=== PATIENT | male | born 1965 | race Caucasian/White ===

== ENCOUNTER 2017-02-17 19:45 | Emergency (ER) | payer MEDICAID ==
[2017-02-17] MEDS ORDERED: LORazepam 2 MG/ML MDV ONE (19:47)
[2017-02-17] MEDS ORDERED: LORazepam 2 MG/ML MDV IM ONE (19:57)
[2017-02-17] MEDS ORDERED: Sodium Chloride 0.9% 1,000 ML IV SCH (20:00)
[2017-02-17] MEDS ORDERED: Sodium Chloride 0.9% 10 ML Syringe FLUSH PRN (20:00)
[2017-02-17] MEDS ORDERED: Aspirin 81 MG Tab.Chew PO ONE (20:04)
[2017-02-17] MEDS ORDERED: Ketorolac 30 MG/ML SDV IVPUSH ONE (20:44)
--- NOTE | 2017-02-17 20:47 | EDM.PDOC ---
ED HPI GENERAL MEDICAL PROBLEM - General Chief Complaint: Chest Pain Stated Complaint: [facility] Time Seen by Provider: 02/17/17 19:45 Source of Information: Reports: Patient, EMS, EMS Notes Reviewed History Limitations: Reports: Combative/Threatening - History of Present Illness INITIAL COMMENTS - FREE TEXT/NARRATIVE: Patient presents to ER today via EMS for chest pain, agitation. Onset: Today, Sudden Duration: Minutes: Location: Reports: Chest, Other (Anxiety) Quality: Reports: Ache Severity: Mild Improves with: Reports: None Treatments CARPENTER RAILCAR: Reports: Other (see below) (Visteril, nitro SL. ) Past Medical History Psychiatric History: Reports: Anxiety ED ROS GENERAL - Review of Systems Review Of Systems: See Below Constitutional: Denies: Fever, Chills HEENT: Reports: No Symptoms Respiratory: Reports: Shortness of Breath. Denies: Wheezing, Cough Cardiovascular: Reports: Chest Pain. Denies: Dyspnea on Exertion, Lightheadedness, Palpitations Endocrine: Reports: No Symptoms GI/Abdominal: Reports: No Symptoms : Reports: No Symptoms Musculoskeletal: Reports: No Symptoms Skin: Reports: No Symptoms Neurological: Reports: Headache. Denies: Numbness, Tingling Psychiatric: Reports: Agitation, Anxiety, Mood Lability. Denies: Hallucinations , Homicidal Ideation, Suicidal Ideation Hematologic/Lymphatic: Reports: No Symptoms Immunologic: Reports: No Symptoms ED EXAM, GENERAL - Physical Exam Exam: See Below Exam Limited By: Uncooperative General Appearance: Alert, WD/WN, Anxious, Mild Distress Eye Exam: Bilateral Eye: PERRL Ears: Normal External Exam, Normal Canal, Hearing Grossly Normal, Normal TMs Ear Exam: Bilateral Ear: Canal Normal, TM normal Throat/Mouth: Normal Inspection, Normal Lips, Normal Teeth, Normal Gums, Normal Oropharynx, Normal Voice, No Airway Compromise Head: Atraumatic, Normocephalic. No: Facial Swelling, Facial Tenderness, Sinus Tenderness Neck: Normal Inspection, Supple, Non-Tender, Full Range of Motion Respiratory/Chest: No Respiratory Distress, Lungs Clear, Normal Breath Sounds, No Accessory Muscle Use, Chest Non-Tender Cardiovascular: Normal Peripheral Pulses, Regular Rate, Rhythm, No Edema, No Gallop, No Murmur, No Rub Peripheral Pulses: 2+: Radial (L), Radial (R), Dorsalis Pedis (L), Dorsalis Pedis (R) GI/Abdominal: Normal Bowel Sounds, Soft, Non-Tender, No Organomegaly, No Distention, No Mass, Other (obese round abdomen) Back Exam: Normal Inspection, Full Range of Motion. No: CVA Tenderness (R), CVA Tenderness (L) Extremities: Normal Inspection, Normal Range of Motion, Non-Tender, No Pedal Edema, Normal Capillary Refill Neurological: Alert, CN II-XII Intact, Normal Gait, No Motor/Sensory Deficits, Other (Angry, frequent use of profanity, refused complete physical exam, history assessment and review. ) Psychiatric: Anxious, Tearful, Other (Angry, yelling, profanity at times. ) Skin Exam: Warm, Dry, Intact, Normal Color, No Rash Lymphatic: No Adenopathy EKG INTERPRETATION EKG Date: 02/18/17 Rhythm: NSR Wright: normal P-wave: present QRS: normal ST-T: normal QT: normal Course - Vital Signs Last Recorded V/S: Last Vital Signs Temp 37.3 C 02/17/17 19:46 Pulse 76 02/17/17 21:16 Resp 18 02/17/17 20:15 BP 140/95 H 02/17/17 21:16 Pulse Ox 95 02/17/17 21:16 - Orders/Labs/Meds Orders: Active Orders 24 hr Category Date Time Status EKG Documentation Completion [RC] ASDIRECTED Care 02/17/17 20:00 Active Chest 1V Frontal [CR] Stat Exams 02/17/17 19:59 Taken DRUG SCREEN, URINE [URCHEM] Stat Lab 02/17/17 19:58 Uncollected UA W/MICROSCOPIC [URIN] Stat Lab 02/17/17 19:58 Uncollected Sodium Chloride 0.9% [Normal Saline] 1,000 ml Med 02/17/17 20:00 Active IV ASDIRECTED Sodium Chloride 0.9% [Saline Flush] Med 02/17/17 20:00 Active 10 ml FLUSH ASDIRECTED PRN Saline Lock Insert [OM.PC] Routine Oth 02/17/17 20:00 Ordered EKG 12 Lead [EK] Routine Ther 02/17/17 19:59 Ordered Medication Orders Sodium Chloride (Normal Saline) 1,000 mls @ 500 mls/hr IV ASDIRECTED REBECCA Sodium Chloride (Saline Flush) 10 ml FLUSH ASDIRECTED PRN PRN Reason: Keep Vein Open Labs: Laboratory Tests 02/17/17 02/17/17 Range/Units 19:50 19:50 WBC 9.4 (4.5-11.0) K/uL RBC 4.40 (4.30-5.90) M/uL Hgb 12.9 (12.0-15.0) g/dL Hct 38.3 L (40.0-54.0) % MCV 87 (80-98) fL MCH 29 (27-31) pg MCHC 34 (32-36) % Plt Count 314 (150-400) K/uL Neut % (Auto) 48 (36-66) % Lymph % (Auto) 34 (24-44) % [place] % (Auto) 12 H (2-6) % Eos % (Auto) 4 (2-4) % Baso % (Auto) 2 H (0-1) % Sodium 140 (140-148) mmol/L Potassium 4.5 (3.6-5.2) mmol/L Chloride 105 (100-108) mmol/L Carbon Dioxide 25 (21-32) mmol/L Anion Gap 10.5 (5.0-14.0) mmol/L BUN 26 H (7-18) mg/dL Creatinine 1.7 H (0.8-1.3) mg/dL Est Cr Clr Drug Dosing TNP Estimated GFR (MDRD) 42 L (>60) Glucose 163 H (74-106) mg/dL Calcium 8.5 (8.5-10.1) mg/dL Total Bilirubin 0.2 (0.2-1.0) mg/dL AST 28 (15-37) U/L ALT 45 (12-78) U/L Alkaline Phosphatase 136 H (46-116) U/L Troponin I 0.042 (0.000-0.056) ng/mL Total Protein 7.4 (6.4-8.2) g/dL Albumin 3.2 L (3.4-5.0) g/dL Globulin 4.2 H (2.3-3.5) g/dL Albumin/Globulin Ratio 0.8 L (1.2-2.2) Attempt to review lab work with patient. Patient stated he wants a room with a comfortable bed. He was advised to stay in the ER for repeat Trop. due to his initial complaint of chest pain. Patient then denied chest pain, with explicit profanity he stated he wanted to be discharged. Meds: Medications Generic Name Dose Route Start Last Admin Trade Name Freq PRN Reason Stop Dose Admin Sodium Chloride 1,000 mls @ 500 mls/hr 02/17/17 20:00 Normal Saline IV ASDIRECTED REBECCA Sodium Chloride 10 ml 02/17/17 20:00 Saline Flush FLUSH ASDIRECTED PRN Keep Vein Open Discontinued Medications Generic Name Dose Route Start Last Admin Trade Name Freq PRN Reason Stop Dose Admin Aspirin 324 mg 02/17/17 20:04 02/17/17 21:47 Aspirin PO 02/17/17 20:05 Not Given ONETIME ONE Ketorolac Tromethamine 30 mg 02/17/17 20:44 02/17/17 20:46 Toradol IVPUSH 02/17/17 20:45 30 mg ONETIME ONE Administration Lorazepam 2 mg 02/17/17 19:57 02/17/17 21:49 Ativan IM 02/17/17 19:58 2 mg ONETIME ONE Administration - Re-Assessments/Exams Free Text/Narrative Re-Assessment/Exam: 02/18/172049 Dr. Galeana in to speak with patient, patient declined to stay for repeat of trop. Stated "I just want medicine for my headache". Patient offered IV toradol, he stated, "I want some pain medication, I didn't tell you what kind". Departure - Departure Time of Disposition: 20:45 Disposition: Home, Self-Care 01 Condition: good Clinical Impression: Anxiety Instructions: Panic Attacks, [id number] Referrals: PCP,None [Primary Care Provider] - Forms: ED Department Discharge Additional Instructions: Keep yourself hydrated. You have suffered an anxiety attack today. You were given lorazepam 2mg IM. Lab work unremarkable. You were offered to stay in the ER for continued monitoring of your complaint of chest pain, however you have declined. You will be discharged back to [facility]. Ibuprofen and acetaminophen for pain as needed. Return to ER or present to your primary provider with issues or concerns. - My Orders Last 24 Hours: My Active Orders 02/17/17 19:58 DRUG SCREEN, URINE [URCHEM] Stat UA W/MICROSCOPIC [URIN] Stat 02/17/17 19:59 Chest 1V Frontal [CR] Stat EKG 12 Lead [EK] Routine 02/17/17 20:00 EKG Documentation Completion [RC] ASDIRECTED Sodium Chloride 0.9% [Normal Saline] 1,000 ml IV ASDIRECTED Sodium Chloride 0.9% [Saline Flush] 10 ml FLUSH ASDIRECTED PRN Saline Lock Insert [OM.PC] Routine - Assessment/Plan Last 24 Hours: My Active Orders 02/17/17 19:58 DRUG SCREEN, URINE [URCHEM] Stat UA W/MICROSCOPIC [URIN] Stat 02/17/17 19:59 Chest 1V Frontal [CR] Stat EKG 12 Lead [EK] Routine 02/17/17 20:00 EKG Documentation Completion [RC] ASDIRECTED Sodium Chloride 0.9% [Normal Saline] 1,000 ml IV ASDIRECTED Sodium Chloride 0.9% [Saline Flush] 10 ml FLUSH ASDIRECTED PRN Saline Lock Insert [OM.PC] Routine Assessment:: Anxiety/panic attack while staying at [facility]. History of alcohol abuse. Plan: Toradol IV for headache, Ativan IM upon arrival.
[2017-02-17 21:24] VITALS: BP 140/95
--- NOTE | 2017-02-19 09:38 | CR ---
Chest 1V Frontal FINDINGS: The heart and vascular structures are normal in appearance. No infiltrates or effusions ar e demonstrated. The skeletal structures are unremarkable. IMPRESSION: Negative exam.
== END 2017-02-17 21:40 | disposition home or self-care (01) ==
LOC: JP.ED 19:45
DX: F41.9 Anxiety disorder, unspecified (principal)
CPT/HCPCS: 36415; 71010; 80053; 84484; 85025; 93005; 96361; 96372; 96374; 99285; J1885; J2060; J7040

== ENCOUNTER 2017-02-22 22:31 | Observation (INO) | payer MEDICAID ==
--- NOTE | 2017-02-23 | EDM.PDOC ---
ED HPI GENERAL MEDICAL PROBLEM - General Chief Complaint: Neurological Problem Stated Complaint: STROKE Time Seen by Provider: 02/22/17 22:40 Source of Information: Reports: Patient, EMS Notes Reviewed History Limitations: Reports: No Limitations - History of Present Illness INITIAL COMMENTS - FREE TEXT/NARRATIVE: pt was brought in by the ambulance with markedly flucating bp. He was having difficulty moving his rt side. He seemd to do fine at times and at other times he was not moving it well. He has a history of sleep apnea and is not using his equipment because it was stollen. He is at [facility] for treatment for etoh and pot. He has been at [facility] since the 16 of February. He has been allowed to use his own meds. He did take lunesta prior to arriving at the [facility]. no one saw him before his symptoms started. Onset: Today, Sudden Duration: Minutes:, Waxing/Waning Location: Reports: Upper Extremity, Right, Other ( some slurring of his speech. ) Associated Symptoms: Reports: No Other Symptoms chest pain Pain Score (Numeric/FACES): 6 right arm Pain Score (Numeric/FACES): 6 - Related Data Allergies Allergy/AdvReac Type Severity Reaction Status Date / Time lidocaine Allergy Cannot Verified 02/22/17 23:22 Remember sulfamethoxazole Allergy Cannot Verified 02/22/17 23:22 [From Bactrim] Remember tramadol Allergy Cannot Verified 02/22/17 23:22 Remember trimethoprim [From Bactrim] Allergy Cannot Verified 02/22/17 23:22 Remember Home Meds: Home Meds . [Unable to Verify Home Med List] 02/18/17 [History] Past Medical History HEENT History: Reports: Other (See Below) Other HEENT History: unable to obtain due to patient behavior Other Cardiovascular History: unable to obtain due to patient behavior Other Respiratory History: unable to obtain due to patient behavior Other Gastrointestinal History: unable to obtain due to patient behavior Other Genitourinary History: unable to obtain due to patient behavior Other Musculoskeletal History: unable to obtain due to patient behavior Other Neuro History: unable to obtain due to patient behavior Psychiatric History: Reports: Addiction, Anxiety Other Endocrine/Metabolic History: unable to obtain due to patient behavior Other Hematologic History: unable to obtain due to patient behavior Other Immunologic History: unable to obtain due to patient behavior Other Oncologic History: unable to obtain due to patient behavior Other Dermatologic History: unable to obtain due to patient behavior - Infectious Disease History Other Infectious Disease History: unable to obtain due to patient behavior Social & Family History - Tobacco Use Smoking Status *Q: Unknown Ever Smoked - Caffeine Use Caffeine Use: Reports: Other Other Caffeine Use: unable to obtain due to patient behavior - Recreational Drug Use Recreational Drug Use: Yes ED ROS GENERAL - Review of Systems Review Of Systems: See Below Constitutional: Reports: No Symptoms HEENT: Reports: No Symptoms, Other ( no facial deviation) Respiratory: Reports: Other ( when he fell asleep his resp did get very slow. ) Cardiovascular: Reports: No Symptoms, Other (pt did talk about some chest pressure. ) Endocrine: Reports: No Symptoms GI/Abdominal: Reports: No Symptoms : Reports: No Symptoms Musculoskeletal: Reports: No Symptoms Skin: Reports: No Symptoms ED EXAM, NEURO - Physical Exam Exam: See Below Text/Narrative:: pt appeared lethrgic and when he fell asleep his resp did get very slow. he has a known diagnosis of sleep apnea. Exam Limited By: Other (pt is sleepy. He has taken lunesta.) General Appearance: Alert, Lethargic, Other ( pupils are equal and reactive. ) Ears: Normal TMs Nose: Normal Inspection Throat/Mouth: Normal Inspection Head Exam: Atraumatic Neck: Normal Inspection Respiratory/Chest: No Respiratory Distress, Other ( resp do get very slow when he falls asleep. ) Cardiovascular: Regular Rate, Rhythm GI/Abdominal: Soft, Non-Tender (Male) Exam: Deferred Rectal (Males) Exam: Deferred Neurological: Alert Back Exam: Normal Inspection Extremities: Normal Inspection Psychiatric: Normal Affect Course - Orders/Labs/Meds Orders: Active Orders 24 hr Category Date Time Status EKG Documentation Completion [RC] ASDIRECTED Care 02/22/17 22:38 Active Head wo Cont [CT] Stat Exams 02/22/17 22:37 Taken UA W/MICROSCOPIC [URIN] Urgent Lab 02/22/17 22:38 Uncollected EKG 12 Lead [EK] Routine Ther 02/22/17 22:38 Ordered Labs: Laboratory Tests 02/22/17 02/22/17 02/22/17 Range/Units 22:45 22:45 22:45 WBC 7.5 (4.5-11.0) K/uL RBC 4.45 (4.30-5.90) M/uL Hgb 12.8 (12.0-15.0) g/dL Hct 38.3 L (40.0-54.0) % MCV 86 (80-98) fL MCH 29 (27-31) pg MCHC 33 (32-36) % Plt Count 265 (150-400) K/uL Neut % (Auto) 48 (36-66) % Lymph % (Auto) 30 (24-44) % [place] % (Auto) 10 H (2-6) % Eos % (Auto) 10 H (2-4) % Baso % (Auto) 2 H (0-1) % APTT (27.0-36.0) sec Sodium 142 (140-148) mmol/L Potassium 4.2 (3.6-5.2) mmol/L Chloride 107 (100-108) mmol/L Carbon Dioxide 26 (21-32) mmol/L Anion Gap 8.9 (5.0-14.0) mmol/L BUN 30 H (7-18) mg/dL Creatinine 1.7 H (0.8-1.3) mg/dL Est Cr Clr Drug Dosing TNP Estimated GFR (MDRD) 42 L (>60) Glucose 119 H (74-106) mg/dL Calcium 8.7 (8.5-10.1) mg/dL Total Bilirubin 0.2 (0.2-1.0) mg/dL AST 24 (15-37) U/L ALT 32 (12-78) U/L Alkaline Phosphatase 126 H (46-116) U/L Creatine Kinase 331 H (39-308) U/L Troponin I 0.041 (0.000-0.056) ng/mL Total Protein 7.4 (6.4-8.2) g/dL Albumin 3.3 L (3.4-5.0) g/dL Globulin 4.1 H (2.3-3.5) g/dL Albumin/Globulin Ratio 0.8 L (1.2-2.2) /05/03 Range/Units 22:45 WBC (4.5-11.0) K/uL RBC (4.30-5.90) M/uL Hgb (12.0-15.0) g/dL Hct (40.0-54.0) % MCV (80-98) fL MCH (27-31) pg MCHC (32-36) % Plt Count (150-400) K/uL Neut % (Auto) (36-66) % Lymph % (Auto) (24-44) % [place] % (Auto) (2-6) % Eos % (Auto) (2-4) % Baso % (Auto) (0-1) % APTT 26.4 L (27.0-36.0) sec Sodium (140-148) mmol/L Potassium (3.6-5.2) mmol/L Chloride (100-108) mmol/L Carbon Dioxide (21-32) mmol/L Anion Gap (5.0-14.0) mmol/L BUN (7-18) mg/dL Creatinine (0.8-1.3) mg/dL Est Cr Clr Drug Dosing Estimated GFR (MDRD) (>60) Glucose (74-106) mg/dL Calcium (8.5-10.1) mg/dL Total Bilirubin (0.2-1.0) mg/dL AST (15-37) U/L ALT (12-78) U/L Alkaline Phosphatase (46-116) U/L Creatine Kinase (39-308) U/L Troponin I (0.000-0.056) ng/mL Total Protein (6.4-8.2) g/dL Albumin (3.4-5.0) g/dL Globulin (2.3-3.5) g/dL Albumin/Globulin Ratio (1.2-2.2) - Re-Assessments/Exams Free Text/Narrative Re-Assessment/Exam: 02/23/17 00:04 cat scan of the head is neg. The lab work looks good except his creatnine is elevated. He appears to be moving all extremities. He falls aleep easily but he has taken lunesta. Departure - Departure Time of Disposition: 00:06 Disposition: Admitted As Inpatient 64 Condition: fair Clinical Impression: Chemical dependency, Sleep apnea, Confusion - Discharge Information Forms: ED Department Discharge Care Plan Goals: [facility] to [facility] - My Orders Last 24 Hours: My Active Orders 02/22/17 22:37 Head wo Cont [CT] Stat 02/22/17 22:38 EKG Documentation Completion [RC] ASDIRECTED UA W/MICROSCOPIC [URIN] Urgent EKG 12 Lead [EK] Routine - Assessment/Plan Last 24 Hours: My Active Orders 02/22/17 22:37 Head wo Cont [CT] Stat 02/22/17 22:38 EKG Documentation Completion [RC] ASDIRECTED UA W/MICROSCOPIC [URIN] Urgent EKG 12 Lead [EK] Routine
[2017-02-23] MEDS ORDERED: Sodium Chloride 0.9% 1,000 ML IV SCH (02:20)
[2017-02-23] MEDS ORDERED: Acetaminophen 325 MG Tab PO PRN (02:20)
[2017-02-23] MEDS ORDERED: Indomethacin 25 MG Cap PO PRN (02:20)
[2017-02-23] MEDS ORDERED: cloNIDine 0.1 MG Tab PO PRN (02:20)
--- NOTE | 2017-02-23 02:24 | PCM.HP ---
H&P History of Present Illness - General Date of Service: 02/22/17 Admit Problem/Dx: Admission Diagnosis/Problem Admission Diagnosis/Problem Altered mental status Source of Information: EMS Notes Reviewed, Provider, RN Notes Reviewed, Other ( [facility] Nurse) History Limitations: Reports: Altered Mental Status - History of Present Illness Initial Comments - Free Text/Narative: - History of Present Illness INITIAL COMMENTS - FREE TEXT/NARRATIVE: pt was brought in by the ambulance with markedly fluctuating blood pressure. He was having difficulty moving his right side. He seemed to do fine at times and at other times he was not moving it well. He has a history of sleep apnea and is not using his equipment because it was stolen. He is at [facility] for treatment for etoh and pot. He has been at [facility] since the 16 of February. He has been allowed to use his own meds. He did take lunesta prior to [facility]. no one saw him before his symptoms started. Onset: Today, Sudden Duration: Minutes:, Waxing/Waning Location: Reports: Upper Extremity, Right, Other ( some slurring of his speech. ) 02/23/17 00:04 cat scan of the head is neg. The lab work looks good except his creatnine is elevated. He appears to be moving all extremities. He falls aleep easily but he has taken lunesta. ate evening supper in room without any nausea or vomiting. Onset of Symptoms: Reports: Sudden Duration of Symptoms: Reports: Hour(s): Location: Reports: Generalized Severity: Moderate Improves with: Reports: None Worsens with: Reports: None Associated Symptoms: Reports: Confusion, Weakness, Other (lethargic, then has episodes of speaking.) chest pain Pain Score (Numeric/FACES): 6 right arm Pain Score (Numeric/FACES): 6 - Related Data Allergies/Adverse Reactions: Allergies Allergy/AdvReac Type Severity Reaction Status Date / Time lidocaine Allergy Cannot Verified 02/22/17 23:22 Remember sulfamethoxazole Allergy Cannot Verified 02/22/17 23:22 [From Bactrim] Remember tramadol Allergy Cannot Verified 02/22/17 23:22 Remember trimethoprim [From Bactrim] Allergy Cannot Verified 02/22/17 23:22 Remember Home Medications: Home Meds Allopurinol [Zyloprim] 100 mg PO DAILY 02/23/17 [History] Eszopiclone [Lunesta] 3 mg PO BEDTIME 02/23/17 [History] Gabapentin [Neurontin] 1,200 mg PO TID 02/23/17 [History] Indomethacin 50 mg PO Q4H PRN 02/23/17 [History] Ketoconazole [Ketoconazole 2%] 1 applic TOP BID 02/23/17 [History] Metoprolol Tartrate [Lopressor] 50 mg PO DAILY 02/23/17 [History] Mirtazapine [Remeron] 15 mg PO BEDTIME 02/23/17 [History] Venlafaxine HCl [Venlafaxine HCl ER] 300 mg PO DAILY 02/23/17 [History] cloNIDine [Catapres] 0.1 mg PO BID PRN 02/23/17 [History] hydrOXYzine Pamoate [Hydroxyzine Pamoate] 50 mg PO TID 02/23/17 [History] Past Medical History HEENT History: Reports: Other (See Below) Other HEENT History: unable to obtain due to patient behavior Cardiovascular History: Reports: Hypertension, NC Other Cardiovascular History: unable to obtain due to patient behavior Respiratory History: Reports: Sleep Apnea Other Respiratory History: unable to obtain due to patient behavior Gastrointestinal History: Reports: Colon Polyp, GERD Other Gastrointestinal History: unable to obtain due to patient behavior Other Genitourinary History: unable to obtain due to patient behavior Musculoskeletal History: Reports: Gout Other Musculoskeletal History: unable to obtain due to patient behavior Neurological History: Reports: Brain Injury, Head Trauma, Neuropathy, Peripheral , Seizure, Other (See Below) Other Neuro History: unable to obtain due to patient behavior Psychiatric History: Reports: Addiction, Anxiety Other Psychiatric History: alcohol addiction, hx of poly substance abuse since , includes meth, cocaine, LSD, THC, ect. Other Endocrine/Metabolic History: unable to obtain due to patient behavior Other Hematologic History: unable to obtain due to patient behavior Other Immunologic History: unable to obtain due to patient behavior Other Oncologic History: unable to obtain due to patient behavior Dermatologic History: Reports: Psoriasis Other Dermatologic History: unable to obtain due to patient behavior - Infectious Disease History Infectious Disease History: Reports: Chicken Pox Other Infectious Disease History: unable to obtain due to patient behavior - Past Surgical History HEENT Surgical History: Reports: Other (See Below) Other HEENT Surgeries/Procedures: surgery on right ear to repair eardrum; patient has artificial eardrum GI Surgical History: Reports: Appendectomy, Cholecystectomy Social & Family History - Tobacco Use Smoking Status *Q: Unknown Ever Smoked - Caffeine Use Caffeine Use: Reports: Other Other Caffeine Use: unable to obtain due to patient behavior - Recreational Drug Use Recreational Drug Use: Yes Drug Use in Last 12 Months: No Recreational Drug Type: Reports: Cocaine, LSD (Acid), Marijuana/Hashish, Methamphetamine Other Recreational Drug Type: methamphetamine and marijuana use in the past 12 months - Living Situation & Occupation Social History Comment: currently in Treatment at [facility] H&P Review of Systems - Review of Systems: Review Of Systems: Unable To Obtain (patient is lethargic) General: Reports: ROS unobtainable Exam - Exam Exam: See Below - Vital Signs Vital Signs: Last Vital Signs Temp 35.6 C 02/23/17 00:21 Pulse 77 02/23/17 00:21 Resp 17 02/23/17 00:21 BP 153/111 H 02/23/17 00:21 Pulse Ox 85 L 02/23/17 00:21 Weight: 99.8 kg - Exam Quality Assessment: Supplemental Oxygen General: Cooperative, Lethargic (he has rambling speech, then is cohert. ) HEENT: Abnormal Pupils (large dialated 7mm, bialateral) Neck: Supple Lungs: Clear to Auscultation, Normal Respiratory Effort, Rhonchi Cardiovascular: Regular Rate Abdomen: Normal Bowel Sounds, Soft, Pelvis Stable (Male) Exam: Deferred Rectal (Males) Exam: Deferred Back Exam: Normal Inspection, Full Range of Motion Extremities: Normal Inspection, Normal Pulses Skin: Warm, Dry, Other (mult self injury cuts, all in scabbed and healing stage. no signs of localized infection) Neurological: Reflexes Equal Bilateral, Strength Equal Bilateral, Sensation Intact Neuro Extensive - Mental Status: Disorientation to Person, Disorientation to Place, Disorientation to Time, Inattentive DTR: 2+: Bicep (L), Bicep (R), Tricep (L), Tricep (R), Patella (L), Patella (R) , Achilles (L), Achilles (R) Psychiatric: Depressed - Patient Data Result Diagrams: 02/22/17 22:45 02/22/17 22:45 *Q Meaningful Use (ADM) - VTE *Q VTE Criteria *Q: - Stroke *Q Stroke Criteria *Q: - AMI *Q AMI Criteria *Q: - Problem List (1) Altered mental state SNOMED Code(s): 872690725 ICD Code: R41.82 - ALTERED MENTAL STATUS, UNSPECIFIED Status: Acute Priority: High Current Visit: Yes Qualifiers: Coma timing: at arrival to emergency department (2) Chemical dependency SNOMED Code(s): 515075600, 076388424 ICD Code: F19.20 - OTHER PSYCHOACTIVE SUBSTANCE DEPENDENCE, UNCOMPLICATED Status: Acute Priority: High Current Visit: Yes (3) Sleep apnea SNOMED Code(s): 32264480 ICD Code: G47.30 - SLEEP APNEA, UNSPECIFIED Status: Acute Priority: High Current Visit: Yes Qualifiers: Sleep apnea type: unspecified type Qualified Code(s): G47.30 - Sleep apnea , unspecified Problem List Initiated/Reviewed/Updated: Yes Orders Last 24hrs: Active Orders 24 hr Category Date Time Status Patient Status [ADT] Routine ADT 02/23/17 02:20 Active Bedrest Bathroom Privileges [RC] ASDIRECTED Care 02/23/17 02:20 Active Intake and Output [RC] PER UNIT ROUTINE Care 02/23/17 02:20 Active Notify Provider Vital Signs [RC] ASDIRECTED Care 02/23/17 02:20 Active Oxygen Therapy [RC] PRN Care 02/23/17 02:20 Active Oxygen Therapy [RC] PRN Care 02/23/17 02:20 Active Vital Signs [RC] Q4H Care 02/23/17 02:20 Active Regular Diet [DIET] Diet 02/23/17 Breakfast Active Brain wo Cont [MR] Routine Exams 02/23/17 09:10 Ordered Acetaminophen [Tylenol] Med 02/23/17 02:20 Ordered 650 mg PO Q4H PRN Diazepam [Valium] Med 02/23/17 02:20 Ordered 10 mg IVPUSH Q10M PRN Indomethacin [Indomethacin] Med 02/23/17 02:20 Ordered 50 mg PO Q4H PRN Metoprolol Tartrate [Lopressor] Med 02/23/17 09:00 Ordered 50 mg PO DAILY Sodium Chloride 0.9% [Normal Saline] 1,000 ml Med 02/23/17 02:20 Ordered IV ASDIRECTED Venlafaxine HCl [Venlafaxine HCl ER] Med 02/23/17 09:00 Ordered 300 mg PO DAILY cloNIDine [Catapres] Med 02/23/17 02:20 Ordered 0.1 mg PO BID PRN Medication Orders Acetaminophen (Tylenol) 650 mg PO Q4H PRN PRN Reason: analgesia/fever Clonidine HCl (Catapres) 0.1 mg PO BID PRN PRN Reason: Hypertension Diazepam (Valium) 10 mg IVPUSH Q10M PRN PRN Reason: Seizures Stop: 02/24/17 01:33 Sodium Chloride (Normal Saline) 1,000 mls @ 125 mls/hr IV ASDIRECTED REBECCA Metoprolol Tartrate (Lopressor) 50 mg PO DAILY ERBECCA Non-Formulary Medication (Indomethacin [Indomethacin]) 50 mg PO Q4H PRN PRN Reason: gout Non-Formulary Medication (Venlafaxine Hcl [Venlafaxine Hcl Er]) 300 mg PO DAILY REBECCA Assessment/Plan Comment:: ASSESSMENT AND PLAN; ALTERED MENTAL STATUS -this is a 51 year old male, present to ER via Ambulance. EMS report called to Juanjo Christie, a 51 year old male having right sided facial droop. while in ER ,. Mr. Maguire was observed, labs completed. Iv access established altererd mental status; patient slowly came around to being of aware of self, room, and surrounding. He admission to hospital for further care and evaluation. PLAN; admit 2 [place] Observation status -order seizure precaution -Iv fluids normal saline at 125ml/hr - recheck tomorrow. -order for MRI of brain in am -send consult to for continue care during hospital stay maintenance issues -DVT; continue present med -GI; continue Protonix -Hernandez cath; not indicated -Nutrition; regular diet - referral to licensed master social worker for discharge planning code status; full code admission status; Observation Status; patient will be admitted to Observation Status. Do not expect a 2 night hospital stay for management and evaluation of this problem. at the time of this observation admission , i do not reasonably expected evaluation and management of the problem will require more than a 48 hour hosptial stay. disposition; home with family Primary care provider; Dr. Rivas [facility] Hospitalist: Dr. Abdul
[2017-02-23] MEDS ORDERED: Diazepam 5 MG Tab PO ONE (09:00)
[2017-02-23] MEDS ORDERED: Venlafaxine 75 MG Cap.ER PO SCH (09:00)
[2017-02-23] MEDS ORDERED: Metoprolol Tartrate 50 MG Tab PO SCH (09:00)
[2017-02-23 09:04] VITALS: BP 138/87
--- NOTE | 2017-02-23 10:28 | MR ---
Brain wo Cont HISTORY: Altered mental status and confusion. COMPARISON: None TECHNIQUE: The brain was imaged in the axial, coronal, and sagittal planes utilizing T1, T2, FLAIR, and diffusion-weighted techniques. The images are significantly degraded. The patient had difficulty remaining still. FINDINGS: There is normal signal intensity throughout the brain. There are no space occupying lesion s. There is no mass effect or edema. There is no evidence for cerebral or subdural hemorrhage. Diffu irwin-weighted images demonstrate no findings of acute ischemia. The ventricles and CSF spaces are ap propriate for age. The brainstem and posterior fossa are unremarkable. Normal appearing flow voids a re demonstrated throughout the cerebral vasculature. The orbital structures are unremarkable. No inf lammatory sinus disease is demonstrated. IMPRESSION: Negative exam of the brain. No acute intracranial abnormalities are demonstrated.
--- NOTE | 2017-02-23 13:43 | PCM.DCSUM1 ---
Discharge Summary - Hospital Course Brief History: 81-year-old male with history of alcohol dependence who presented from a local treatment facility with fluctuating blood pressure and right-sided weakness. He was admitted for observation and further workup - Discharge Data Discharge Date: 02/23/17 Discharge Disposition: DC/Tfer to Other 70 Condition: Good - Discharge Diagnosis/Problem(s) (1) Altered mental state SNOMED Code(s): 745309700 ICD Code: R41.82 - ALTERED MENTAL STATUS, UNSPECIFIED Status: Acute Priority: High Current Visit: Yes Qualifiers: Coma timing: at arrival to emergency department (2) Neuropathy SNOMED Code(s): 278489363 ICD Code: G62.9 - POLYNEUROPATHY, UNSPECIFIED Status: Chronic Current Visit: Yes (3) Chemical dependency SNOMED Code(s): 150771046, 312257753 ICD Code: F19.20 - OTHER PSYCHOACTIVE SUBSTANCE DEPENDENCE, UNCOMPLICATED Status: Acute Priority: High Current Visit: Yes - Patient Summary/Data Consults: Consultations 02/23/17 02:56 Consult to Physician [CONS] Urgent Consulting Provider: Barbie Umaña Courtesy Call Completed to Consulting Physician: No Reason for Consult: admitted patient to hospital from [facility] Course: Ronny presented to the emergency room with fluctuating blood pressures and trouble moving the right side of his body. Workup in the emergency room was reassuring including laboratory studies and a head CT. He did have evidence for mild elevation of creatinine from baseline but otherwise labs were completely normal. He was admitted for observation. Overnight there were no difficulties. The morning after admission he is a little somnolent but otherwise stable. Blood pressures have been stable. An MRI of the morning after admission was entirely normal. There is no evidence for stroke. I suspect that his difficulties are caused by too many sedating medications. Gabapentin seems to be the most likely culprit with a very large dose and impaired renal clearance. This medication has been held since the time of admission and he cleared appropriately. Seems to be back to his baseline with normal cognition. Neurological examination is entirely normal. I did recommend that we reduce his dose down to 600 mg 3 times a day but he was very worried about flareup of his neuropathy. He was agreeable to reducing the medication down to 900 mg 3 times a day. He reports a follow-up with his primary care physician next week for reevaluation. There is no evidence for stroke or infection. As previously mentioned this is likely too many sedating medications causing his difficulty including somnolence and weakness. There is no evidence for alcohol withdrawal. - Patient Instructions Diet: Regular Diet as Tolerated Activity: As Tolerated Driving: Do Not Drive Showering/Bathing: May Shower Notify Provider of: Fever, Increased Pain, Nausea and/or Vomiting Other/Special Instructions: 1. You were in the hospital for observation after presenting with fluctuating blood pressures and trouble moving your right side. Your blood pressures have been stable and there was no evidence for stroke on head CT or MRI. I suspect that your medication doses are too large and/or the medications are interacting with several sedating medications on your list. I recommend that we reduce your gabapentin to 900 mg 3 times a day. You could consider discussing a different neuropathy medication with your primary care provider next week. 2. Please seek medical attention if you develop fever greater than 101, have difficulty with speech, difficulty moving arm or leg or both on one side of your body or you have excessive somnolence. - Discharge Plan Prescriptions/Med Rec: Gabapentin [Neurontin] 900 mg PO TID #135 tablet Home Medications: Home Meds Allopurinol [Zyloprim] 100 mg PO DAILY 02/23/17 [History] Eszopiclone [Lunesta] 3 mg PO BEDTIME 02/23/17 [History] Gabapentin [Neurontin] 900 mg PO TID #135 tablet 02/23/17 [Rx] Indomethacin 50 mg PO Q4H PRN 02/23/17 [History] Ketoconazole [Nizoral 2% Crm] 1 applic TOP BID 02/23/17 [History] Metoprolol Tartrate [Lopressor] 50 mg PO DAILY 02/23/17 [History] Mirtazapine [Remeron] 15 mg PO BEDTIME 02/23/17 [History] Venlafaxine HCl [Venlafaxine HCl ER] 300 mg PO DAILY 02/23/17 [History] cloNIDine [Catapres] 0.1 mg PO BID PRN 02/23/17 [History] hydrOXYzine Pamoate [Hydroxyzine Pamoate] 50 mg PO TID 02/23/17 [History] Forms: ED Department Discharge Referrals: PCP,None [Family Provider] - - Patient Data Vitals - Most Recent: Last Vital Signs Temp 35.8 C 02/23/17 06:00 Pulse 78 02/23/17 09:03 Resp 12 02/23/17 06:00 BP 138/87 02/23/17 09:03 Pulse Ox 97 02/23/17 06:00 Weight - Most Recent: 99.8 kg I&O - Last 24 hours: Intake & Output 02/22/17 02/23/17 02/23/17 22:59 06:59 14:59 Intake Total 488 650 Output Total 575 Balance -87 650 Med Orders - Current: Current Medications Acetaminophen (Tylenol) 650 mg PO Q4H PRN PRN Reason: analgesia/fever Last Admin: 02/23/17 04:28 Dose: 650 mg Clonidine HCl (Catapres) 0.1 mg PO BID PRN PRN Reason: Hypertension Diazepam (Valium) 10 mg IVPUSH Q10M PRN PRN Reason: Seizures Stop: 02/24/17 01:33 Sodium Chloride (Normal Saline) 1,000 mls @ 125 mls/hr IV ASDIRECTED [facility] Last Admin: 02/23/17 02:28 Dose: 125 mls/hr Indomethacin (Indocin) 50 mg PO Q4H PRN PRN Reason: gout Metoprolol Tartrate (Lopressor) 50 mg PO DAILY [facility] Last Admin: 02/23/17 09:03 Dose: 50 mg Venlafaxine HCl (Effexor Xr) 300 mg PO DAILY [facility] Last Admin: 02/23/17 09:04 Dose: 300 mg Discontinued Medications Diazepam (Valium.) 5 mg PO ONETIME ONE Stop: 02/23/17 09:01 Last Admin: 02/23/17 09:05 Dose: 5 mg *Q Meaningful Use (DIS) - VTE *Q VTE Criteria *Q: - Stroke *Q Stroke Criteria *Q: - AMI *Q AMI Criteria *Q:
== END 2017-02-23 14:36 | disposition other institution (70) ==
LOC: JP.ED 22:31 → JP.ICU 02-23 01:25
PROVIDERS: ADMIT Internal Medicine; ATTEND Internal Medicine
DX: R41.82 Altered mental status, unspecified (principal); G62.9 Polyneuropathy, unspecified; F19.20 Other psychoactive substance dependence, uncomplicated; I10 Essential (primary) hypertension; G47.30 Sleep apnea, unspecified; K21.9 Gastro-esophageal reflux disease without esophagitis; F41.9 Anxiety disorder, unspecified; Z90.49 Acquired absence of other specified parts of digestive tract; Z88.2 Allergy status to sulfonamides; Z79.899 Other long term (current) drug therapy; Z88.8 Allergy status to other drugs, medicaments and biological substances; Z79.01 Long term (current) use of anticoagulants
CPT/HCPCS: 36415; 70450; 70551; 80053; 80305; 81001; 82550; 84484; 85025; 85730; 93005; 99285; A9270; J7040; G0378

== ENCOUNTER 2024-11-20 08:01 | Emergency (ER) | payer MEDICAID, MEDICARE ==
[2024-11-20] MEDS ORDERED: Naloxone 0.4 MG/ML SDV IVPUSH PRN (08:29)
[2024-11-20] MEDS: Morphine 2 MG/ML SYRINGE IVPUSH ONE ×2 (08:39→09:21)
[2024-11-20 08:41] LABS: BASOPHILS ABSOLUTE AUTO 0.04 K/uL (0.00-0.10); BASOPHILS PERCENT AUTO 0.9 % (0.1-1.3); EOSINOPHILS ABSOLUTE AUTO 0.31 K/uL (0.00-0.40); EOSINOPHILS PERCENT AUTO 6.9 % (0.0-5.4); HEMATOCRIT 28.2 % (38.4-49.7); HEMOGLOBIN 9.5 g/dL (12.9-16.9); IMMATURE GRAN PERCENT AUTO 0.2 % (0.0-0.7); LYMPHOCYTES ABSOLUTE AUTO 0.94 K/uL (0.8-3.3); LYMPHOCYTES PERCENT AUTO 20.8 % (11.4-47.7); MEAN CORPUSCULAR HEMOGLOBIN 31.7 pg (31.6-35.5); MEAN CORPUSCULAR HGB CONC 33.7 g/dL (31.6-35.5); MONOCYTES ABSOLUTE AUTO 0.53 K/uL (0.20-0.90); MONOCYTES PERCENT AUTO 11.8 % (3.3-12.6); NEUTROPHILS ABSOLUTE AUTO 2.68 K/uL (1.0-7.6); NEUTROPHILS PERCENT AUTO 59.4 % (40.0-78.1); PLATELET COUNT,PLT 184 K/uL (130-375); WHITE BLOOD CELL COUNT,WBC 4.5 K/uL (3.2-11.0)
[2024-11-20 08:45] LABS: IMMATURE GRAN ABSOLUTE AUTO 0.01 K/uL (0.00-0.23)
[2024-11-20 09:02] LABS: A/G RATIO 0.7 (1.2-2.2); ALANINE AMINOTRANSFERASE,ALT 19 U/L (12-78); ALBUMIN 3.2 g/dL (3.4-5.0); ALKALINE PHOSPHATASE 218 U/L (46-116); ASPARTATE AMNIOTRANSFERASE,AST 25 U/L (15-37); BILIRUBIN TOTAL 0.9 mg/dL (0.2-1.0); BLOOD UREA NITROGEN,BUN 25 mg/dL (7-18); CALCIUM 9.1 mg/dL (8.5-10.1); CARBON DIOXIDE,CO2 22 mmol/L (21-32); CHLORIDE,CL 101 mmol/L (100-108); CREATININE 1.3 mg/dL (0.8-1.3); ESTIMATED GFR 63 mL/min (>60); GLUCOSE RANDOM 86 mg/dL (74-106); POTASSIUM,K 4.7 mmol/L (3.6-5.2); PROTEIN TOTAL,TP 7.7 g/dL (6.4-8.2); SODIUM,NA 134 mmol/L (140-148)
[2024-11-20 09:11] LABS: ANION GAP 15.7 mmol/L (5.0-14.0)
[2024-11-20 09:26] VITALS: BP 125/93; PULSE 62
[2024-11-20] MEDS: Dexamethasone 4 MG/ML SDV IVPUSH ONE (09:55)
[2024-11-20] MEDS: Bupivacaine 0.25% 10 ML SDV INJECT ONE (09:55)
[2024-11-20] MEDS: Dexamethasone 4 MG/ML SDV IM ONE (10:21)
== END 2024-11-20 11:12 | disposition home or self-care (01) ==
LOC: JP.ED 08:01
DX: M53.3 Sacrococcygeal disorders, not elsewhere classified (principal); I10 Essential (primary) hypertension; I25.2 Old myocardial infarction; Z90.49 Acquired absence of other specified parts of digestive tract; Z79.899 Other long term (current) drug therapy; Z88.2 Allergy status to sulfonamides; Z88.5 Allergy status to narcotic agent; Z88.4 Allergy status to anesthetic agent
CPT/HCPCS: 36415; 64450; 74176; 80053; 85025; 96374; 96376; 99285; J0665; J1100; J2270; 99284

== ENCOUNTER 2024-11-22 10:11 | Emergency (ER) | payer MEDICARE ==
[2024-11-22 10:38] LABS: BASOPHILS ABSOLUTE AUTO 0.07 K/uL (0.00-0.10); EOSINOPHILS ABSOLUTE AUTO 0.22 K/uL (0.00-0.40); EOSINOPHILS PERCENT AUTO 3.1 % (0.0-5.4); HEMOGLOBIN 9.7 g/dL (12.9-16.9); IMMATURE GRAN ABSOLUTE AUTO 0.03 K/uL (0.00-0.23); IMMATURE GRAN PERCENT AUTO 0.4 % (0.0-0.7); LYMPHOCYTES ABSOLUTE AUTO 0.98 K/uL (0.8-3.3); MEAN CORPUSCULAR HEMOGLOBIN 32.1 pg (31.6-35.5); MEAN CORPUSCULAR HGB CONC 33.4 g/dL (31.6-35.5); MONOCYTES ABSOLUTE AUTO 0.68 K/uL (0.20-0.90); MONOCYTES PERCENT AUTO 9.7 % (3.3-12.6); NEUTROPHILS ABSOLUTE AUTO 5.03 K/uL (1.0-7.6); NEUTROPHILS PERCENT AUTO 71.8 % (40.0-78.1); PLATELET COUNT,PLT 229 K/uL (130-375); RED BLOOD CELL COUNT 3.02 M/uL (4.14-5.76)
[2024-11-22 11:03] LABS: A/G RATIO 0.8 (1.2-2.2); ALBUMIN 3.4 g/dL (3.4-5.0); BILIRUBIN DIRECT 0.27 mg/dL (0.0-0.2); BILIRUBIN INDIRECT 0.33; BILIRUBIN TOTAL 0.6 mg/dL (0.2-1.0); PROTEIN TOTAL,TP 7.8 g/dL (6.4-8.2)
[2024-11-22 11:04] LABS: CALCIUM 8.6 mg/dL (8.5-10.1); CREATININE 1.6 mg/dL (0.8-1.3); EST CRCL DRUG DOSING (CG) 53.22 mL/min; POTASSIUM,K 4.4 mmol/L (3.6-5.2)
[2024-11-22 11:07] LABS: ANION GAP 11.4 mmol/L (5.0-14.0)
[2024-11-22] MEDS: Acetaminophen 500 MG Tab PO ONE (11:30)
[2024-11-22 11:54] VITALS: BP 119/79; PULSE 71
== END 2024-11-22 12:36 | disposition home or self-care (01) ==
LOC: JP.ED 10:11
DX: M94.0 Chondrocostal junction syndrome [Tietze] (principal); I10 Essential (primary) hypertension; Z88.4 Allergy status to anesthetic agent; Z88.8 Allergy status to other drugs, medicaments and biological substances; Z79.899 Other long term (current) drug therapy; Z90.49 Acquired absence of other specified parts of digestive tract
CPT/HCPCS: 36415; 71045; 80048; 80076; 84484; 85025; 93005; 99285; A9270

== ENCOUNTER 2024-12-04 12:20 | Emergency (ER) | payer MEDICARE, MEDICAID ==
[2024-12-04 12:45] LABS: BASOPHILS ABSOLUTE AUTO 0.06 K/uL (0.00-0.10); BASOPHILS PERCENT AUTO 1.2 % (0.1-1.3); EOSINOPHILS ABSOLUTE AUTO 0.27 K/uL (0.00-0.40); EOSINOPHILS PERCENT AUTO 5.2 % (0.0-5.4); HEMATOCRIT 28.8 % (38.4-49.7); HEMOGLOBIN 9.8 g/dL (12.9-16.9); IMMATURE GRAN PERCENT AUTO 0.2 % (0.0-0.7); LYMPHOCYTES ABSOLUTE AUTO 1.43 K/uL (0.8-3.3); LYMPHOCYTES PERCENT AUTO 27.5 % (11.4-47.7); MEAN CORPUSCULAR HEMOGLOBIN 31.6 pg (31.6-35.5); MEAN CORPUSCULAR VOLUME 92.9 fL (81.4-99.0); MONOCYTES ABSOLUTE AUTO 0.85 K/uL (0.20-0.90); MONOCYTES PERCENT AUTO 16.3 % (3.3-12.6); NEUTROPHILS ABSOLUTE AUTO 2.58 K/uL (1.0-7.6); NEUTROPHILS PERCENT AUTO 49.6 % (40.0-78.1); PLATELET COUNT,PLT 248 K/uL (130-375); WHITE BLOOD CELL COUNT,WBC 5.2 K/uL (3.2-11.0)
[2024-12-04 12:49] LABS: IMMATURE GRAN ABSOLUTE AUTO 0.01 K/uL (0.00-0.23)
[2024-12-04 13:09] LABS: PROTHROMBIN TIME 10.3 sec (9.2-10.6)
[2024-12-04 13:27] LABS: A/G RATIO 0.6 (1.2-2.2); ALANINE AMINOTRANSFERASE,ALT 23 U/L (12-78); ALBUMIN 2.9 g/dL (3.4-5.0); ALKALINE PHOSPHATASE 197 U/L (46-116); ASPARTATE AMNIOTRANSFERASE,AST 31 U/L (15-37); BILIRUBIN TOTAL 0.5 mg/dL (0.2-1.0); BLOOD UREA NITROGEN,BUN 31 mg/dL (7-18); CARBON DIOXIDE,CO2 23 mmol/L (21-32); CHLORIDE,CL 101 mmol/L (100-108); CREATININE 1.3 mg/dL (0.8-1.3); ESTIMATED GFR 63 mL/min (>60); GLUCOSE RANDOM 99 mg/dL (74-106); MAGNESIUM 1.7 mg/dL (1.8-2.4); POTASSIUM,K 4.5 mmol/L (3.6-5.2); PRO B-TYPE NATRIUR PEPT,BNPPRO 5636 pg/mL (5-125); PROTEIN TOTAL,TP 7.7 g/dL (6.4-8.2); SODIUM,NA 137 mmol/L (140-148); TROPONIN I HIGH SENSITIVITY 34.8 pg/mL (<=60.3)
[2024-12-04 13:28] LABS: ANION GAP 17.5 mmol/L (5.0-14.0)
[2024-12-04 13:55] LABS: APPEARANCE,URINE CLEAR (CLEAR); BILIRUBIN,URINE NEGATIVE (NEGATIVE); COLOR,URINE YELLOW (YELLOW); GLUCOSE,URINE NEGATIVE (NEGATIVE); KETONES,URINE NEGATIVE (NEGATIVE); LEUKOCYTE ESTERASE,URINE NEGATIVE (NEGATIVE); NITRITE,URINE NEGATIVE (NEGATIVE); OCCULT BLOOD,URINE NEGATIVE (NEGATIVE); PROTEIN,URINE TRACE mg/dL (NEGATIVE); UROBILINOGEN,URINE 0.2 EU/dL (0.2-1.0)
[2024-12-04 14:05] LABS: BACTERIA,URINE NOT SEEN; EPITHELIAL CELLS,URINE NOT SEEN; RBC,URINE 0-5 (0-5); WBC,URINE 0-5 (0-5)
[2024-12-04 14:06] LABS: AMORPHOUS SEDIMENT,URINE NOT SEEN; MUCUS,URINE NOT SEEN
[2024-12-04] MEDS: Sodium Chloride 0.9% 100 ML IV SCH (14:30)
[2024-12-04] MEDS: Sodium Chloride 0.9% 10 ML Syringe FLUSH ONE (14:31)
[2024-12-04] MEDS: Iopamidol 755 Mg/ML 100 ML Bottle IV SCH (14:31)
[2024-12-04 15:50] VITALS: BP 118/81; PULSE 69
== END 2024-12-04 16:25 | disposition home or self-care (01) ==
LOC: JP.ED 12:20
DX: R07.89 Other chest pain (principal); I10 Essential (primary) hypertension; I25.2 Old myocardial infarction; Z91.041 Radiographic dye allergy status; Z88.2 Allergy status to sulfonamides; Z88.5 Allergy status to narcotic agent; Z79.899 Other long term (current) drug therapy
CPT/HCPCS: 36415; 71045; 71275; 80053; 81001; 82947; 83605; 83735; 83880; 84484; 85025; 85379; 85610; 93005; 93010; 99284; 99285; Q9967